=== PATIENT | female | born 1995 ===

== ENCOUNTER 2021-06-29 13:30 | Inpatient (IN) | payer OTHER ==
[~2021-06-29] VITALS: Ht 149.9 cm; Wt 56.7 kg
[2021-07-03] MEDS ORDERED: PRENATAL TABLE1 EAC1 PO (15:47)
== END 2021-07-05 14:39 | disposition home or self-care (01) | DRG 807 ==
LOC: OB/GYN 07-03 14:22 → LDR 07-03 14:22 → OB/GYN 07-03 18:13 → SURG-SUITE 07-04 08:42 → OB/GYN 07-10 13:30
PROVIDERS: ADMIT Obstetrics & Gynecology; ATTEND Obstetrics & Gynecology
PROC: 10E0XZZ Delivery of Products of Conception, External Approach (ICD-10-PCS; principal; 2021-07-03)
PROC: 4A1HXCZ Monitoring of Products of Conception, Cardiac Rate, External Approach (ICD-10-PCS; 2021-07-03)
PROC: 0UQMXZZ Repair Vulva, External Approach (ICD-10-PCS; 2021-07-03)
DX: O70.0 First degree perineal laceration during delivery (principal); Z37.0 Single live birth; Z3A.39 39 weeks gestation of pregnancy; Z20.822 Contact with and (suspected) exposure to COVID-19